=== PATIENT | female | born 1965 | race Caucasian/White ===

== ENCOUNTER 2017-08-10 12:01 | Day surgery (SDC) | payer OTHER ==
[2017-08-10] MEDS ORDERED: MIDAZOLAM 1 MG/ML 2 ML INJ ×2 (13:55)
[2017-08-10] MEDS ORDERED: FENTAnyl 50 MCG/ML VIAL (13:56)
== END 2017-08-10 14:55 | disposition home or self-care (01) ==
LOC: GIL 12:01
DX: Z12.11 Encounter for screening for malignant neoplasm of colon (principal); Z85.038 Personal history of other malignant neoplasm of large intestine
CPT/HCPCS: 45378